=== PATIENT | female | born 1980 | race Asian ===

== ENCOUNTER 2024-05-24 12:24 | Emergency (ER) | payer BC ==
[~2024-05-24] VITALS: Ht 165.1 cm; Wt 68.0 kg
[2024-05-24 12:30] VITALS: BP_SYST 130; PULSE 91; RESP 18; TEMP 98.3; O2SAT 98
[2024-05-24] MEDS: ASPIRIN 325 MG TABLET PO ONE (12:50)
[2024-05-24 12:57] LABS: BASOPHILS % (AUTO) 0.4 % (0.0-2.0); EOSINOPHILS % (AUTO) 0.2 % (0.0-4.0); HEMATOCRIT 38.8 % (36-48); HEMOGLOBIN 12.4 g/dL (12.0-16.0); LYMPHOCYTES # (AUTO) 2.2 K/uL (1.0-5.5); LYMPHOCYTES % (AUTO) 35.7 % (20.5-51.5); MEAN CORPUSCULAR HEMOGLOBIN 26 pg (27-31); MEAN CORPUSCULAR HGB CONC 32 % (32-36); MEAN CORPUSCULAR VOLUME 81 fL (79.0-98.0); MONOCYTES # (AUTO) 0.5 K/uL (0.0-1.0); MONOCYTES % (AUTO) 8.8 % (1.7-9.3); NEUTROPHILS # (AUTO) 3.4 K/uL (1.8-7.7); NEUTROPHILS % (AUTO) 54.9 % (40.0-70.0); PLATELET COUNT (AUTO) 339 K/uL (130-430); RED BLOOD CELL COUNT(AUTO) 4.82 MIL/uL (4.2-6.2); RED CELL DISTRIBUTION WIDTH 15.1 % (9.0-15.0); WHITE BLOOD COUNT (AUTO) 6.1 K/uL (4.8-10.8)
[2024-05-24 12:59] LABS: BILIRUBIN,URINE NEGATIVE (NEGATIVE); BLOOD, URINE 2+ (NEGATIVE); CLARITY/URINE CLEAR (CLEAR); COLOR,URINE YELLOW (YELLOW); GLUCOSE,URINE NEGATIVE (NEGATIVE); KETONES,URINE NEGATIVE (NEGATIVE); LEUKOCYTE ESTERASE ,URINE NEGATIVE (NEGATIVE); NITRITE, URINE NEGATIVE (NEGATIVE); PROTEIN URINE NEGATIVE (NEGATIVE); UROBILINOGEN,URINE 0.2 (0.2-1.0)
[2024-05-24 13:16] LABS: ANION GAP 8 (5-15); CARBON DIOXIDE 27 mmol/L (23-29); CHLORIDE 105 mmol/L (98-107); CREATININE 0.68 mg/dL (0.55-1.30); GFR AFRICAN AMERICAN 120 mL/min (>90); GFR NON AFRICAN-AMERICAN 99 mL/min (>90); GLUCOSE 85 mg/dL (74-106); POTASSIUM 3.4 mmol/L (3.5-5.1); SODIUM SERUM 140 mmol/L (136-145); UREA NITROGEN, BLOOD 12 mg/dL (8-21)
[2024-05-24 13:16] LABS: BACTERIA,URINE FEW /HPF (None Seen); RBC,URINE 0-3 /HPF (0-3); WBC,URINE NONE SEEN /HPF (0-3)
[2024-05-24 17:12] VITALS: BP_SYST 130; PULSE 67; RESP 16; TEMP 98.3; O2SAT 98
== END 2024-05-24 17:13 | disposition home or self-care (01) ==
LOC: SED 12:24
DX: R07.89 Other chest pain (principal); R20.2 Paresthesia of skin
CPT/HCPCS: 36415; 71045; 80048; 81000; 81001; 81015; 81025; 83880; 84484; 85025; 93005; 99285

== ENCOUNTER 2024-07-28 17:02 | Inpatient (IN) | payer BC ==
[~2024-07-28] VITALS: Ht 165.1 cm; Wt 73.0 kg
[2024-07-28 17:09] VITALS: BP_SYST 136; PULSE 70; RESP 16; TEMP 98.4; O2SAT 99
[2024-07-28 18:21] LABS: BASOPHILS % (AUTO) 0.5 % (0.0-2.0); EOSINOPHILS # (AUTO) 0.1 K/uL (0.0-0.4); EOSINOPHILS % (AUTO) 0.8 % (0.0-4.0); HEMATOCRIT 37.8 % (36-48); HEMOGLOBIN 12.8 g/dL (12.0-16.0); LYMPHOCYTES # (AUTO) 2.9 K/uL (1.0-5.5); LYMPHOCYTES % (AUTO) 42.6 % (20.5-51.5); MEAN CORPUSCULAR HEMOGLOBIN 27 pg (27-31); MEAN CORPUSCULAR HGB CONC 34 % (32-36); MEAN CORPUSCULAR VOLUME 79 fL (79.0-98.0); MONOCYTES # (AUTO) 0.5 K/uL (0.0-1.0); MONOCYTES % (AUTO) 7.5 % (1.7-9.3); NEUTROPHILS # (AUTO) 3.3 K/uL (1.8-7.7); NEUTROPHILS % (AUTO) 48.6 % (40.0-70.0); PLATELET COUNT (AUTO) 369 K/uL (130-430); RED CELL DISTRIBUTION WIDTH 15.3 % (9.0-15.0); WHITE BLOOD COUNT (AUTO) 6.8 K/uL (4.8-10.8)
[2024-07-28 18:54] LABS: ANION GAP 9 (5-15); CALCIUM 9.2 mg/dL (8.4-11.0); CARBON DIOXIDE 27 mmol/L (23-29); CHLORIDE 106 mmol/L (98-107); GFR AFRICAN AMERICAN 99 mL/min (>90); GLUCOSE 97 mg/dL (74-106); SODIUM SERUM 142 mmol/L (136-145); UREA NITROGEN, BLOOD 11 mg/dL (8-21)
[2024-07-28 18:56] LABS: GFR NON AFRICAN-AMERICAN 82 mL/min (>90)
[2024-07-28 20:53] LABS: COVID19 ANTIGEN SOFIA FIA NEGATIVE (NEGATIVE)
[2024-07-28 20:54] LABS: INFLUENZA TYPE A Negative (NEGATIVE); INFLUENZA TYPE B NEGATIVE (NEGATIVE)
[2024-07-28 21:36] LABS: ALANINE AMINOTRANSFERASE 15 U/L (12-78); ALBUMIN 3.4 g/dL (3.4-4.8); ASPARTATE AMINOTRANSFERASE 13 U/L (10-37); BILIRUBIN,DIRECT 0.1 mg/dL (0.0-0.3); TOTAL BILIRUBIN 0.2 mg/dL (0.0-1.0); TOTAL PROTEIN, SERUM 7.1 g/dL (6.4-8.3)
[2024-07-28] MEDS: ASPIRIN 325 MG TABLET PO ONE (22:34)
[2024-07-28] MEDS: CLOPIDOGREL BISULFATE 75 MG TABLET PO ONE (22:34)
[2024-07-28] MEDS ORDERED: LORazepam 2 MG/ML VIAL IVP PRN (23:00)
[2024-07-28] MEDS ORDERED: ONDANSETRON HCL 4 MG/2 ML VIAL IVP PRN (23:00)
[2024-07-28] MEDS ORDERED: HYDROcodone/ACETAMIN 10-325 MG TAB PO PRN (23:00)
[2024-07-28] MEDS ORDERED: HYDROcodone/ACETAMIN 5-325 MG TAB (NORCO/ VICODIN) PO PRN (23:00)
[2024-07-28] MEDS ORDERED: MORPHINE 2 MG/ML INJ. SYRINGE IVP PRN (23:00)
[2024-07-29] MEDS: ATORVASTATIN 20 MG TABLET PO ONE (00:27)
[2024-07-29] MEDS: D5/0.45 NS 1,000 ML IV SCH (00:41)
[2024-07-29 02:14] VITALS: BP_SYST 109; PULSE 66; RESP 16; TEMP 98.4; O2SAT 97
[2024-07-29 07:20] LABS: BASOPHILS % (AUTO) 0.6 % (0.0-2.0); EOSINOPHILS % (AUTO) 0.5 % (0.0-4.0); HEMATOCRIT 34.7 % (36-48); HEMOGLOBIN 11.3 g/dL (12.0-16.0); LYMPHOCYTES # (AUTO) 2.8 K/uL (1.0-5.5); LYMPHOCYTES % (AUTO) 46.6 % (20.5-51.5); MEAN CORPUSCULAR HEMOGLOBIN 26 pg (27-31); MEAN CORPUSCULAR HGB CONC 33 % (32-36); MEAN CORPUSCULAR VOLUME 79 fL (79.0-98.0); MONOCYTES # (AUTO) 0.3 K/uL (0.0-1.0); MONOCYTES % (AUTO) 5.7 % (1.7-9.3); NEUTROPHILS # (AUTO) 2.8 K/uL (1.8-7.7); NEUTROPHILS % (AUTO) 46.6 % (40.0-70.0); PLATELET COUNT (AUTO) 301 K/uL (130-430); RED BLOOD CELL COUNT(AUTO) 4.38 MIL/uL (4.2-6.2); RED CELL DISTRIBUTION WIDTH 15.5 % (9.0-15.0)
[2024-07-29 07:42] LABS: ALBUMIN 3.2 g/dL (3.4-4.8); CALCIUM 8.4 mg/dL (8.4-11.0); CREATININE 0.63 mg/dL (0.55-1.30); PHOSPHORUS 3.5 mg/dL (2.7-4.5); POTASSIUM 3.2 mmol/L (3.5-5.1); TOTAL BILIRUBIN 0.4 mg/dL (0.0-1.0); TOTAL PROTEIN, SERUM 6.3 g/dL (6.4-8.3)
[2024-07-29 08:00] VITALS: BP_SYST 110; PULSE 65; RESP 18; TEMP 98.1; O2SAT 98
[2024-07-29 08:15] VITALS: O2SAT 98
[2024-07-29] MEDS: ATORVASTATIN 20 MG TABLET ONE (09:00)
[2024-07-29] MEDS: CLOPIDOGREL BISULFATE 75 MG TABLET PO SCH (09:00)
[2024-07-29] MEDS: ATORVASTATIN 20 MG TABLET PO SCH (09:00)
[2024-07-29] MEDS: ASPIRIN 81 MG TAB.CHEW PO SCH (09:00)
[2024-07-29 12:45] VITALS: BP_SYST 111; PULSE 67; RESP 17; TEMP 98.2; O2SAT 98
[2024-07-29] MEDS: ENOXAPARIN SODIUM 40 MG/0.4 ML SYRINGE SUBCUT SCH (14:53)
[2024-07-29 16:01] VITALS: BP_SYST 109; PULSE 66; RESP 18; TEMP 98.7; O2SAT 98
[2024-07-29 20:00] VITALS: BP_SYST 108; PULSE 70; RESP 18; TEMP 98.4; O2SAT 98
[2024-07-30] VITALS: BP_SYST 96; PULSE 80; RESP 18; TEMP 97.5; O2SAT 99
[2024-07-30 07:44] LABS: BASOPHILS % (AUTO) 0.1 % (0.0-2.0); EOSINOPHILS % (AUTO) 0.2 % (0.0-4.0); HEMOGLOBIN 11.2 g/dL (12.0-16.0); LYMPHOCYTES # (AUTO) 1.7 K/uL (1.0-5.5); LYMPHOCYTES % (AUTO) 20.4 % (20.5-51.5); MEAN CORPUSCULAR HEMOGLOBIN 26 pg (27-31); MEAN CORPUSCULAR HGB CONC 33 % (32-36); MEAN CORPUSCULAR VOLUME 79 fL (79.0-98.0); MONOCYTES # (AUTO) 0.8 K/uL (0.0-1.0); MONOCYTES % (AUTO) 8.9 % (1.7-9.3); NEUTROPHILS % (AUTO) 70.4 % (40.0-70.0); PLATELET COUNT (AUTO) 274 K/uL (130-430); RED BLOOD CELL COUNT(AUTO) 4.32 MIL/uL (4.2-6.2); RED CELL DISTRIBUTION WIDTH 15.3 % (9.0-15.0); WHITE BLOOD COUNT (AUTO) 8.5 K/uL (4.8-10.8)
[2024-07-30 07:56] LABS: CALCIUM 7.9 mg/dL (8.4-11.0); CREATININE 0.67 mg/dL (0.55-1.30); POTASSIUM 3.1 mmol/L (3.5-5.1); THYROID STIMULATING HORMONE 1.41 uIu/mL (0.34-4.82); TOTAL BILIRUBIN 0.6 mg/dL (0.0-1.0); TOTAL PROTEIN, SERUM 6.2 g/dL (6.4-8.3)
[2024-07-30 08:04] VITALS: BP_SYST 91; PULSE 79; RESP 18; TEMP 98; O2SAT 97
[2024-07-30 09:02] LABS: HEMOGLOBIN A1C 5.2 % (<5.7)
[2024-07-30 10:20] VITALS: O2SAT 100
[2024-07-30] MEDS: POTASSIUM CHLORIDE 20 MEQ TABLET.ER PO ONE (12:30)
[2024-07-30 12:56] VITALS: BP_SYST 97; PULSE 82; RESP 17; TEMP 97.8; O2SAT 97
[2024-07-30 16:00] VITALS: BP_SYST 98; PULSE 80; RESP 18; TEMP 98; O2SAT 96
[2024-07-30 20:15] VITALS: O2SAT 98
[2024-07-30] MEDS: POTASSIUM CHLORIDE 20 MEQ TABLET.ER PO SCH (20:48)
[2024-07-31 00:21] VITALS: BP_SYST 93; PULSE 73; RESP 17; TEMP 98; O2SAT 99
[2024-07-31 07:50] VITALS: BP_SYST 104; PULSE 82; RESP 15; TEMP 97.7; O2SAT 97
[2024-07-31 08:43] LABS: BASOPHILS % (AUTO) 0.3 % (0.0-2.0); EOSINOPHILS % (AUTO) 0.8 % (0.0-4.0); HEMATOCRIT 34.1 % (36-48); HEMOGLOBIN 11.3 g/dL (12.0-16.0); LYMPHOCYTES % (AUTO) 35.9 % (20.5-51.5); MEAN CORPUSCULAR HEMOGLOBIN 26 pg (27-31); MEAN CORPUSCULAR HGB CONC 33 % (32-36); MEAN CORPUSCULAR VOLUME 79 fL (79.0-98.0); MONOCYTES # (AUTO) 0.4 K/uL (0.0-1.0); MONOCYTES % (AUTO) 7.6 % (1.7-9.3); NEUTROPHILS # (AUTO) 3.1 K/uL (1.8-7.7); NEUTROPHILS % (AUTO) 55.4 % (40.0-70.0); PLATELET COUNT (AUTO) 276 K/uL (130-430); RED BLOOD CELL COUNT(AUTO) 4.31 MIL/uL (4.2-6.2); RED CELL DISTRIBUTION WIDTH 15.3 % (9.0-15.0); WHITE BLOOD COUNT (AUTO) 5.6 K/uL (4.8-10.8)
[2024-07-31 09:27] LABS: ALBUMIN 2.8 g/dL (3.4-4.8); CALCIUM 8.4 mg/dL (8.4-11.0); CREATININE 0.76 mg/dL (0.55-1.30); POTASSIUM 3.5 mmol/L (3.5-5.1); TOTAL BILIRUBIN 0.4 mg/dL (0.0-1.0); TOTAL PROTEIN, SERUM 6.4 g/dL (6.4-8.3)
[2024-07-31 11:07] VITALS: BP_SYST 114; PULSE 70; RESP 14; TEMP 97.7; O2SAT 99
[2024-07-31 16:14] VITALS: BP_SYST 118; PULSE 75; RESP 14; TEMP 97.8; O2SAT 98
[2024-07-31] MEDS ORDERED: ACET-2634 PO (17:11)
[2024-07-31] MEDS ORDERED: LIP20 PO (17:11)
[2024-07-31] MEDS ORDERED: CLOP75TA32 PO (17:11)
[2024-07-31] MEDS ORDERED: ASA81 PO (17:11)
[2024-07-31 17:22] VITALS: BP_SYST 118; PULSE 75; RESP 15; TEMP 97.8; O2SAT 98
== END 2024-07-31 18:07 | disposition home or self-care (01) | DRG 57 ==
LOC: SED 17:02 → STU 22:51
PROVIDERS: ADMIT Student in an Organized Health Care Education/Training Program; ATTEND Student in an Organized Health Care Education/Training Program
DX: G81.91 Hemiplegia, unspecified affecting right dominant side (principal); E06.3 Autoimmune thyroiditis; Z20.822 Contact with and (suspected) exposure to COVID-19; F41.9 Anxiety disorder, unspecified; Z79.82 Long term (current) use of aspirin; Z79.899 Other long term (current) drug therapy; Z98.891 History of uterine scar from previous surgery
CPT/HCPCS: 36415; 70450-TC; 70496; 70498; 70551; 71045; 80048; 80053; 80061; 80076; 83037; 83735; 83880; 84100; 84443; 84484; 85025; 85379; 92610-GN; 93306; 97110-GP; 97116-GP; 97530-GP; 99285; G0378; J1650